=== PATIENT | female | born 1945 | race Caucasian/White ===

== ENCOUNTER → 2016-08-14 | Day surgery (SDC) | payer OTHER ==
[2016-08-02 08:37] VITALS: BMI 26.0
[~2016-08-14] VITALS: Ht 157.5 cm; Wt 65.0 kg
[~2016-08-14] MED LIST: ASPI-435 PO; FENO67CA2 PO; GLC5 PO; HYDR25TA4 PO; IBUP-1451 PO; ISOS-10 PO; LIDOCAINE HCL 2% 2 ML VIAL (20MG/ML) ONE; LORA0.5T12 PO; METF-384 PO; MIDAZOLAM HCL 1 MG/ML 2ML VIAL ONE; NTRSL3 UT; NXM/40 PO; ONDANSETRON INJ 2 MG/ML 2 ML VIAL ONE; POLY99.02 OP; PROPOFOL IV EMULSION 10 MG/ML 20 ML VIAL IV ONE; PSYL55.43 PO; REPA2TAB13 PO; SODIUM CHLORIDE 0.9% 500ML 500 ML IV ONE; TRAZ100T29 PO; ZCR40 PO
[2016-08-14 14:28] VITALS: Ht 157.5 cm; Wt 65.0 kg
[2016-08-14 14:29] VITALS: TEMP 36.9
--- NOTE | 2016-08-14 15:05 | Endo History and Physical ---
History & Physical Date of Service: Aug 14, 2016. Chief Complaint: DYSPHAGIA Referring Physician: DR SAUL History of Present Illness esophageal structure/dysphagia Past Medical History Diabetes, Anxiety, Reflux, High Cholesterol, Hypertension Past Surgical History Hx Cardiac Surgery: No Hx Internal Defibrillator: No Hx Pacemaker: No Hx Abdominal Surgery: Yes (D&C, TUBAL LIGATION) Hx of Implantable Prosthesis: No Hx Post-Op Nausea and Vomiting: No Hx Cancer Surgery: No Hx Thoracic Surgery: No Hx Orthopedic: No Hx Urinary Tract Surgery: No Family History IBD Social History Smoking Status: Former Smoker Hx Substance Use: No Hx Alcohol Use: No Allergies Coded Allergies: Aspirin (Unverified Allergy, Intermediate, PATIENT FEELS LIKE SHE IS BURNING/ WITH NAUSEA, 08/14/16) Dihydroxyaluminum Aminoacetate (Unverified Allergy, Intermediate, PATIENT FEELS LIKE SHE IS BURNING/ WITH NAUSEA, 08/14/16) Iron (Unverified Allergy, Intermediate, PATIENT FEELS LIKE DHE IS BURNING / NAUSEA, 08/14/16) Magnesium Carbonate (Unverified Allergy, Intermediate, PATIENT FEELS LIKE SHE IS BURNING/ WITH NAUSEA, 08/14/16) Uncoded Allergies: ANTIBIOTICS (Adverse Reaction, Unknown, VAGINAL YEAST INFECTION, 08/02/16) REQUESTS ANTIFUNGAL WHEN GIVEN ANTIBIOTICS Current Medications Reported Home Medications Medications Dose Route/Sig Max Daily Dose Days Date Category Dose Instructions Trazodone (Trazodone HCl) 100 Mg Tab 100 Mg PO HS 01/23/16 Reported Glipizide 5 Mg Tab 5 Mg PO HS 01/23/16 Reported Glipizide 5 Mg Tab 10 Mg PO QAM 01/23/16 Reported Artificial Tears Soln 1-2 Drops OP QID 06/26/15 Reported TO AFFECTED EYE PRN Metamucil Powder (Psyllium Hydrophilic Mucilloid) Powd 2 Tbs PO QAM 06/26/15 Reported Nitrostat (Nitroglycerin) 0.3 Mg Tab 0.3 Mg UT UD PRN 06/26/15 Reported Nexium (Esomeprazole Magnesium) 40 Mg Cap 40 Mg PO HS 06/26/15 Reported Lorazepam 0.5 Mg Tab 0.5 Mg PO TID 03/02/14 Reported Aspirin 81 (Aspirin) 81 Mg Tab 81 Mg PO QAM 03/02/14 Reported Isosorbide Mononitrate ER (Isosorbide Mononitrate) 60 Mg Tabcr 120 Mg PO QAM 03/02/14 Reported Simvastatin 40 Mg Tab 40 Mg PO QHS 03/02/14 Reported Hctz (Hydrochlorothiazide) 25 Mg Tab 25 Mg PO QAM 03/02/14 Reported Prandin (Repaglinide) 2 Mg Tab 2 Mg PO QAM 03/02/14 Reported Tricor (Fenofibrate) 67 Mg Cap 67 Mg PO HS 03/02/14 Reported Glucophage (Metformin Hcl) 1,000 Mg Tab 1,000 Mg PO HS 03/02/14 Reported Motrin (Ibuprofen) 800 Mg Tab 800 Mg PO DAILY PRN 03/02/14 Reported Vital Signs Weight (Kilograms): 65.00 Height (Feet): 5 Height (Inches): 2 Date Time Temp Pulse Resp B/P Pulse Ox O2 Delivery O2 Flow Rate FiO2 08/14/16 14:29 36.9 74 20 154/61 95 Room Air Physical Exam AAO x23 Nl s1s2 Lungs CTA Abd soft NT/ND + BS -- CCE Assessment and Plan EGD/dilation if needed
--- NOTE | 2016-08-14 15:31 | Anesthesiology Progress Note ---
Anesthesia Post Op Note Date & Time Aug 14, 2016 at 15:30 Vital Signs Pain Intensity: 0 Vital Signs Past 12 Hours Date Time Temp Pulse Resp B/P Pulse Ox O2 Delivery O2 Flow Rate FiO2 08/14/16 14:29 36.9 74 20 154/61 95 Room Air Notes Mental Status: alert / awake / arousable, participated in evaluation Pt Amnestic to Procedure: Yes Nausea / Vomiting: adequately controlled Pain: adequately controlled Airway Patency, RR, SpO2: stable & adequate BP & HR: stable & adequate Hydration State: stable & adequate Anesthetic Complications: no major complications apparent
--- NOTE | 2016-08-14 15:35 | Discharge Instructions ---
Endoscopy Patient Instructions Date / Procedure(s) Performed Aug 14, 2016. EGD Allergy Information Coded Allergies: Aspirin (Unverified Allergy, Intermediate, PATIENT FEELS LIKE SHE IS BURNING/ WITH NAUSEA, 08/14/16) Dihydroxyaluminum Aminoacetate (Unverified Allergy, Intermediate, PATIENT FEELS LIKE SHE IS BURNING/ WITH NAUSEA, 08/14/16) Iron (Unverified Allergy, Intermediate, PATIENT FEELS LIKE DHE IS BURNING / NAUSEA, 08/14/16) Magnesium Carbonate (Unverified Allergy, Intermediate, PATIENT FEELS LIKE SHE IS BURNING/ WITH NAUSEA, 08/14/16) Uncoded Allergies: ANTIBIOTICS (Adverse Reaction, Unknown, VAGINAL YEAST INFECTION, 08/02/16) REQUESTS ANTIFUNGAL WHEN GIVEN ANTIBIOTICS Discharge Date / Findings Aug 14, 2016. 1) SSBE; gastric polyps; small HH Medication Instructions Stopped Medication(s): IBUPROFEN GLUCOPHAGE Restart Stopped Medication(s): Reported Home Medications Medications Dose Route/Sig Max Daily Dose Days Date Category Dose Instructions Trazodone (Trazodone HCl) 100 Mg Tab 100 Mg PO HS 01/23/16 Reported Glipizide 5 Mg Tab 5 Mg PO HS 01/23/16 Reported Glipizide 5 Mg Tab 10 Mg PO QAM 01/23/16 Reported Artificial Tears Soln 1-2 Drops OP QID 06/26/15 Reported TO AFFECTED EYE PRN Metamucil Powder (Psyllium Hydrophilic Mucilloid) Powd 2 Tbs PO QAM 06/26/15 Reported Nitrostat (Nitroglycerin) 0.3 Mg Tab 0.3 Mg UT UD PRN 06/26/15 Reported Nexium (Esomeprazole Magnesium) 40 Mg Cap 40 Mg PO HS 06/26/15 Reported Lorazepam 0.5 Mg Tab 0.5 Mg PO TID 03/02/14 Reported Aspirin 81 (Aspirin) 81 Mg Tab 81 Mg PO QAM 03/02/14 Reported Isosorbide Mononitrate ER (Isosorbide Mononitrate) 60 Mg Tabcr 120 Mg PO QAM 03/02/14 Reported Simvastatin 40 Mg Tab 40 Mg PO QHS 03/02/14 Reported Hctz (Hydrochlorothiazide) 25 Mg Tab 25 Mg PO QAM 03/02/14 Reported Prandin (Repaglinide) 2 Mg Tab 2 Mg PO QAM 03/02/14 Reported Tricor (Fenofibrate) 67 Mg Cap 67 Mg PO HS 03/02/14 Reported Glucophage (Metformin Hcl) 1,000 Mg Tab 1,000 Mg PO HS 03/02/14 Reported Motrin (Ibuprofen) 800 Mg Tab 800 Mg PO DAILY PRN 03/02/14 Reported Reported Home Medications Medications Dose Route/Sig Max Daily Dose Days Date Category Dose Instructions Trazodone (Trazodone HCl) 100 Mg Tab 100 Mg PO HS 01/23/16 Reported Glipizide 5 Mg Tab 5 Mg PO HS 01/23/16 Reported Glipizide 5 Mg Tab 10 Mg PO QAM 01/23/16 Reported Artificial Tears Soln 1-2 Drops OP QID 06/26/15 Reported TO AFFECTED EYE PRN Metamucil Powder (Psyllium Hydrophilic Mucilloid) Powd 2 Tbs PO QAM 06/26/15 Reported Nitrostat (Nitroglycerin) 0.3 Mg Tab 0.3 Mg UT UD PRN 06/26/15 Reported Nexium (Esomeprazole Magnesium) 40 Mg Cap 40 Mg PO HS 06/26/15 Reported Lorazepam 0.5 Mg Tab 0.5 Mg PO TID 03/02/14 Reported Aspirin 81 (Aspirin) 81 Mg Tab 81 Mg PO QAM 03/02/14 Reported Isosorbide Mononitrate ER (Isosorbide Mononitrate) 60 Mg Tabcr 120 Mg PO QAM 03/02/14 Reported Simvastatin 40 Mg Tab 40 Mg PO QHS 03/02/14 Reported Hctz (Hydrochlorothiazide) 25 Mg Tab 25 Mg PO QAM 03/02/14 Reported Prandin (Repaglinide) 2 Mg Tab 2 Mg PO QAM 03/02/14 Reported Tricor (Fenofibrate) 67 Mg Cap 67 Mg PO HS 03/02/14 Reported Glucophage (Metformin Hcl) 1,000 Mg Tab 1,000 Mg PO HS 03/02/14 Reported Motrin (Ibuprofen) 800 Mg Tab 800 Mg PO DAILY PRN 03/02/14 Reported Provider Instructions Activity Restrictions - No exercising or heavy lifting for 24 hours. - Do not drink alcohol the day of the procedure. - Do not drive a car or operate machinery until the day after the procedure. - Do not make any important decisions or sign important papers in 24 hours after the procedure. Following Day: - Return to full activity which may include returning to work/school. Diet Start your diet with liquids and light foods (jello, soup, juice, toast). Then eat your usual diet if not nauseated. Treatment For Common After Affects For mild abdominal pain, bloating, or excessive gas: - Rest - Eat lightly - Lie on right side Follow-Up Information Follow-up with DR SAUL as scheduled Anesthesia Information What You Should Know You have had a procedure that required some medicine to reduce anxiety and discomfort. This treatment is called moderate sedation. After receiving the treatment, you may be sleepy, but you will be able to breathe on your own. The effects of the treatment may last for several hours. Follow these instructions along with Activity/Diet recommendations noted above: * Do NOT do anything where dizziness or clumsiness would be dangerous. * Rest quietly at home today, then you can be up and about tomorrow. * Have a responsible person stay with you the rest of today. * You may have had an I.V. today. If so, you may take the dressing off later today. Recommendations Call your doctor if: * Trouble breathing * Continuous vomiting for more than 24 hours * Temperature above 101 degrees * Severe abdominal pain or bloating * Pain not relieved by pain medicine ordered * There is increased drainage or redness from any incision * A large amount of rectal bleeding greater than 2-3 tablespoons. (If you had a polyp/s removed or have hemorrhoids, a small amount of blood - from the rectum is to be expected.) * You have any unanswered questions or concerns. IN THE EVENT OF A SERIOUS EMERGENCY, GO TO THE NEAREST EMERGENCY ROOM Your discharge instructions were prepared by provider Shane Coello. Patient Instructions Signature Page Sheba Jerry Patient (or Guardian) Signature/Date: I have read and understand the instructions given to me by my caregivers. Caregiver/RN/Doctor Signature/Date: The above-named patient and/or guardian has received patient instructions on this date. + Original Patient Signature Page (only) stays with chart. Please make copy for patient.
--- NOTE | 2016-08-14 15:40 | GI REPORT ---
Procedure Date: 08/14/2016 3:13 PM Procedure: Upper GI endoscopy Indications: Esophageal dysphagia, Gastro-esophageal reflux disease Medicines: Propofol per Anesthesia Complications: No immediate complications. Estimated blood loss: Minimal. Estimated Blood Loss: Estimated blood loss was minimal. Procedure: Pre-Anesthesia Assessment: - Prior to the procedure, a History and Physical was performed, and patient medications and allergies were reviewed. The patient's tolerance of previous anesthesia was also reviewed. The risks and benefits of the procedure and the sedation options and risks were discussed with the patient. All questions were answered, and informed consent was obtained. Prior Anticoagulants: The patient has taken no previous anticoagulant or antiplatelet agents. ASA Grade Assessment: II - A patient with mild systemic disease. After reviewing the risks and benefits, the patient was deemed in satisfactory condition to undergo the procedure. After obtaining informed consent, the endoscope was passed under direct vision. Throughout the procedure, the patient's blood pressure, pulse, and oxygen saturations were monitored continuously. The scope was introduced through the mouth, and advanced to the second part of duodenum. The upper GI endoscopy was accomplished without difficulty. The patient tolerated the procedure well. Findings: The upper third of the esophagus and middle third of the esophagus were normal. The esophagus and gastroesophageal junction were examined with white light. 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 These changes involved the mucosa at the upper extent of the gastric folds (37 cm from the incisors) extending to the Z-line (36 cm from the incisors). Hiatal narrowing was identified at 38 cm. The maximum longitudinal extent of these esophageal mucosal changes was 1 cm in length. Mucosa was biopsied with a cold forceps for histology. One specimen bottle was sent to pathology. Verification of patient identification for the specimen was done by the physician and technician support association using the patient's name and medical record number. Multiple small sessile polyps with no bleeding and no stigmata of recent bleeding were found in the gastric body. Biopsies were taken with a cold forceps for histology. Estimated blood loss was minimal. Verification of patient identification for the specimen was done by the physician and technician support association using the patient's name and medical record number. The examined duodenum was normal. Retained gastric contents are not identified on this exam. The cardia and gastric fundus were normal on retroflexion. The gastric body and gastric antrum were normal. Biopsies were taken with a cold forceps for histology. Estimated blood loss was minimal. Verification of patient identification for the specimen was done by the physician and technician support association using the patient's name and medical record number. The examined esophagus was normal. A guidewire was placed and the scope was withdrawn. Dilation was performed with a Savary dilator with no resistance at 54 Fr. Estimated blood loss: none. Impression: - Normal upper third of esophagus and middle third of esophagus. 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 Biopsied. - Multiple gastric polyps. Biopsied. - Normal examined duodenum. - Normal gastric body and antrum. Biopsied. - Normal esophagus. Dilated. Recommendation: - Discharge patient to home (ambulatory). - Patient has a contact number available for emergencies. The signs and symptoms of potential delayed complications were discussed with the patient. Return to normal activities tomorrow. Written discharge instructions were provided to the patient. - Resume regular diet. MD Shane Flores MD 08/14/2016 3:40:11 PM This report has been signed electronically. Note Initiated On: 08/14/2016 3:13 PM I attest to the content of the Intraoperative Record and orders documented therein, exceptions below
[2016-08-14 16:09] VITALS: BP 107/55; PULSE 61; O2SAT 97
== END | disposition home or self-care (01) ==
LOC: C.GI 13:54
PROVIDERS: ATTEND Internal Medicine Gastroenterology
DX: K22.2 Esophageal obstruction (principal); K22.70 Barrett's esophagus without dysplasia; K21.9 Gastro-esophageal reflux disease without esophagitis; K31.7 Polyp of stomach and duodenum; F41.9 Anxiety disorder, unspecified; E78.5 Hyperlipidemia, unspecified; E11.9 Type 2 diabetes mellitus without complications; I10 Essential (primary) hypertension; Z83.79 Family history of other diseases of the digestive system; Z88.5 Allergy status to narcotic agent; Z88.8 Allergy status to other drugs, medicaments and biological substances; Z98.51 Tubal ligation status; Z87.891 Personal history of nicotine dependence

== ENCOUNTER → 2016-09-10 | Outpatient (CLI) | payer OTHER ==
[~2016-09-10] MED LIST changes: -LIDOCAINE HCL 2% 2 ML VIAL (20MG/ML) ONE; -MIDAZOLAM HCL 1 MG/ML 2ML VIAL ONE; -ONDANSETRON INJ 2 MG/ML 2 ML VIAL ONE; -PROPOFOL IV EMULSION 10 MG/ML 20 ML VIAL IV ONE; +REPA2TAB12 PO; -REPA2TAB13 PO; -SODIUM CHLORIDE 0.9% 500ML 500 ML IV ONE
--- NOTE | 2016-09-10 08:57 | DIAGNOSTIC IMAGING REPORT ---
HEAD CT NONCONTRAST CT DOSE: 537.48 mGy.cm HISTORY: Bone lesion bone lesion TECHNIQUE: Multiaxial CT images of the head were performed without the use of intravenous contrast. Comparison: Multiple prior examinations including 2016, 2015, and 2013. Findings: The paranasal sinuses and mastoid air cells are clear. Sclerotic process left frontal bone is unchanged compared to multiple prior exams. This again is considered benign. Density characteristics of the cerebellar as well as cerebral hemispheres are unremarkable. No acute intracranial hemorrhage. Impression: 1. Negative unenhanced CT scan of the brain. 2. Stable sclerotic density left frontal bone unchanged compared to multiple prior studies and considered benign Electronically signed by: Justyn Khan M.D. 09/10/2016 8:54 AM Dictated Date/Time: 09/10/2016 8:52 AM
== END | disposition home or self-care (01) ==
LOC: C.CTS 08:37
PROVIDERS: ATTEND Psychiatry & Neurology Neurology
DX: M89.8X8 Other specified disorders of bone, other site (principal); R51 Headache; I10 Essential (primary) hypertension; E11.9 Type 2 diabetes mellitus without complications

== ENCOUNTER → 2017-12-16 | Outpatient (CLI) | payer OTHER ==
--- NOTE | 2017-12-16 16:19 | MAMMOGRAPHY REPORT ---
THIS REPORT HAS BEEN AMENDED. BILATERAL DIGITAL DIAGNOSTIC MAMMOGRAM TOMOSYNTHESIS WITH CAD AND TARGETED RIGHT ULTRASOUND: 8 CLINICAL HISTORY: 72-year-old woman presents with a small palpable lump in the far lateral right guy st, which she describes as the size of a match head. No skin erythema or thickening. No nipple discha rge. Also due for annual bilateral screening mammograms. TECHNIQUE: The study was acquired using full field digital technology and interpreted from soft copy. Breast tomosynthesis in addition to standard 2D mammography was performed. Current study was also ev aluated with a Computer Aided Detection (CAD) system. COMPARISON: Comparison is made to exam dated: 03/08/2017 mammogram. BREAST COMPOSITION: There are scattered areas of fibroglandular density in both breasts. FINDINGS: A triangular skin marker was placed on the palpable lump pointed out by the patient, which is seen in the superior, posterior right breast on the MLO view. There is no evidence of a suspiciou s mass, asymmetry, area of architectural distortion or new calcifications in the superior posterior r ight breast or elsewhere throughout the remainder of each breast. There are mild to moderate vascula r calcifications bilaterally. Overall, there has been no significant interval change comparing to pr ior mammograms. The patient pointed out the area of concern in the right breast 8:00 axis, 17 cm from the nipple, in the far lateral aspect near the midaxillary line. There is focal ovoid versus fusiform thickening of the dermis that is echogenic. This focal oval dermal thickening measures 5.8 x 2.0 x 5.4 mm. There is no evidence of fluid or an epidermal inclusion cyst. Dermatologic follow-up is therefore recomme nded. IMPRESSION: ACR BI-RADS CATEGORY 2: BENIGN, ULTRASOUND ACR BI-RADS CATEGORY 2: BENIGN 1. Stable bilateral mammograms, without mammographic evidence of malignancy. Recommend routine scre ening mammography in 1 year. 2. There is an ovoid focal thickening of the dermis in the 8:00 right breast, 17 cm from the nipple, near the midaxillary line, correlating with the palpable lump pointed out by the patient. There is no evidence of a fluid collection or epidermal inclusion cyst. Dermatologic follow-up is therefore r ecommended. These results and recommendations were discussed with the patient at the time of the exam. Some breast cancers are not detected with mammography. A negative mammographic report should not mena y biopsy if a clinically suggestive mass is present. Janice Howard M.D. ay/:12/16/2017 14:50:27 [employer] Clerk: Eleonora Damico, [facility]; Janice Howard, [facility] letter sent: Normal 05/27 OVERALL STUDY BIRADS: 2 Benign AMENDMENT: 12/22/2017 Janice Howard M.D. This is a correction to the bilateral digital diagnostic mammogram and targeted right breast ultra sound report. The comparison examination was actually from 03/01/2014, not 03/08/2017. This 2013 michelle mogram was performed at [facility]. Amended BI-RADS: ACR BI-RADS Category 2: Benign letter sent: Normal 05/27
== END | disposition home or self-care (01) ==
LOC: C.MAMM 10:38
PROVIDERS: ATTEND Nurse Practitioner Family
DX: N63.10 Unspecified lump in the right breast, unspecified quadrant (principal); Z12.31 Encounter for screening mammogram for malignant neoplasm of breast

== ENCOUNTER 2020-07-17 14:27 | Observation (INO) ==
--- NOTE | 2020-07-17 14:55 | Emergency Department Note ---
Impression & Plan Symptomatic anemia ED Provider Note NAME: SHANNON AGUILAR AGE: 75 SEX: F : 1945 ARRIVES VIA: Walk-In INFORMANT: Patient, ED PROVIDER(S): Jose Angel Correa MD Chief Complaint: Low hemoglobin, doctor referral HPI: Patient does present with concern for low hemoglobin after a CBC was completed and the patient did complete an iron infusion. Patient states she has had increasing shortness of breath fatigue and dizziness that is been ongoing for weeks. The patient denies any prior history of blood in the urine or stool. The patient denies any diarrhea or vomiting. The patient states that she has had colonoscopy and endoscopy and was not told of any significant findings. The patient is a non-smoker. The patient denies any chest pains. The patient did require transfusion many many years ago in the 60s secondary to miscarriage. The patient denies upper respiratory symptoms including loss of taste or smell or cough. Patient does take a baby aspirin but denies any other blood thinning medications. ROS: See HPI for pertinent positives and negatives. A total of 10 systems were reviewed and otherwise negative. Past medical history: See below Surgical history: See below Social history: See below Physical Exam: GENERAL: Wearing a mask. NAD, non-toxic. EYE EXAM: Normal conjunctiva. PERRL, no anisocoria and EOM's grossly intact w/o pain. NECK: Supple, no nuchal rigidity, no adenopathy, non-tender. No signs of meningismus. LUNGS: Clear to auscultation. Normal chest wall mechanics. HEART: NSR, no MRG. ABDOMEN: Abdomen soft, non-tender, normo-active bowel sounds, no masses, no rebound or guarding. BACK: No CVA TTP. SKIN: No rashes and no bruising. UPPER EXTREMITIES: Upper extremities are grossly normal. LOWER EXTREMITIES: Grossly normal, no edema. NEURO EXAM: A&O x3, cranial nerves II-XII grossly intact, normal speech, moves all 4 extremities on command w/o issue. Differential diagnoses: Infection, dehydration, metabolic abnormality, hypo/hyperglycemia, electrolyte disturbance, anemia, hypoxia, cardiac sources, intracerebral event, toxicologic, neurologic, as well as other pathologies. Course: Patient was seen and evaluated the bedside. Full history physical exam was performed. EKG: Indication: Weakness Normal sinus rhythm, rate of 78, normal RI and QRS, normal axis. Imaging Studies: Radiology results as stated below per my review in the radiologist's interpretation: XR chest 1V portable CLINICAL HISTORY: weakness COMPARISON STUDY: 01/23/2016 FINDINGS: The cardiac and mediastinal contours remain stable. The patient appears hyperinflated. There is no failure. There is no focal pulmonary consolidation.[There are no significant pleural effusions. IMPRESSION: Mild hyperinflation. No acute findings. ACT 112: Negative or not required by law. Electronically signed by: Kojo Slade M.D. 07/17/2020 3:49 PM Dictated: 07/17/201548 Transcribed: 07/17/201548 Cardiac monitoring: An order was placed for continuous cardiac monitoring. The monitor shows a rate of 81 with sinus rhythm. MDM: Patient was seen due to concern for anemia. Patient did have blood work completed which showed the patient has a normal white count mild thrombocytosis and associated anemia with hemoglobin of 6.3. Earlier today it was less than 6. Mild hypokalemia noted. Glucose is elevated 223. Covid negative. The patient was consented for transfusion of blood products and the patient was ordered 2 units to be given. I did speak with the on-call hospitalist Dr. Jimenez and the patient was admitted to the medicine service. Critical Care: I have personally spent 45 minutes of critical care time in direct management of this patient. This includes bedside care, interpretation of diagnostic studies, and testing, discussion with consultants, patient, and family members, and other require inpatient management activities. This 45 minutes is in excess of all separately billable procedures. 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 History of esophageal dilatation History of rheumatic fever as a child x3 in childhood Hyperlipidemia Hypertension Lesion of temporal lobe Migraine Surgical History History of bilateral cataract extraction History of bilateral tubal ligation History of biopsy of temporal artery benign History of colonoscopy with polypectomy History of dilatation and curettage History of esophagogastroduodenoscopy (EGD) History of tooth extraction all teeth Status post epidural steroid injection Family History Daughter Family history of reaction to anesthesia "has issues being put to sleep"--unable to provide further information Brother Family history of diabetes mellitus Brother Family history of diabetes mellitus Mother Family history of diabetes mellitus Aunt Family history of diabetes mellitus Grandmother (Paternal) Family history of diabetes mellitus Social History Smoking Status: Former smoker Second Hand Exposure: Yes (father smoked/ smoked/kids smoke); Hx Alcohol Use: No Hx Substance Use: No Preferred Language: Mongolian Communication Ability: Effective 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 Required: No Beliefs That Will Affect Care: None Current Living Situation: Alone Feels Safe at Home: Yes Assistive Devices: None Allergies Allergies Allergy/AdvReac Type Severity Reaction Status Date / Time iron Allergy Intermediate PATIENT Verified 05/05/20 12:29 FEELS LIKE DHE IS BURNING/ NAUSEA magnesium carbonate Allergy Intermediate PATIENT Verified 05/05/20 12:29 FEELS LIKE SHE IS BURNING/ WITH NAUSEA Dihydroxyaluminum Allergy Intermediate PATIENT Uncoded 05/05/20 12:29 Aminoacetate FEELS LIKE SHE IS BURNING/ WITH NAUSEA ANTIBIOTICS AdvReac Mild VAGINAL Uncoded 05/05/20 12:29 YEAST INFECTION Home Meds Home Medications Medication Instructions Recorded Confirmed Artificial Tears (PF) 1 drp OPHTHALMIC (EYE) BID 04/27/20 07/17/20 Metamucil 2 tbsp PO QAM 04/27/20 07/17/20 fenofibrate micronized 67 mg PO PM 04/27/20 07/17/20 glipizide 5 mg PO QPM 04/27/20 07/17/20 glipizide 10 mg PO QAM 04/27/20 07/17/20 hydrochlorothiazide 12.5 mg PO QAM 04/27/20 07/17/20 ibuprofen 800 mg PO DAILY PRN 04/27/20 07/17/20 isosorbide mononitrate 120 mg PO QAM 04/27/20 07/17/20 lorazepam 0.5 mg PO TID 04/27/20 07/17/20 metformin 1,000 mg PO BID 04/27/20 07/17/20 nitroglycerin 0.4 mg SUBLINGUAL UD PRN 04/27/20 07/17/20 pantoprazole 20 mg PO QPM 04/27/20 07/17/20 repaglinide 2 mg PO QAM 04/27/20 07/17/20 simvastatin 40 mg PO PM 04/27/20 07/17/20 trazodone 100 mg PO HS 04/27/20 07/17/20 aspirin [Aspir-Low] 81 mg PO DAILY 07/17/20 07/17/20 Results & Data (ED) Vital Signs Vital Signs - 24 hr 07/17/20 14:31 07/17/20 15:30 07/17/20 16:00 Temperature 36.3 C L Temperature Source Temporal Artery Scan Pulse Rate 90 82 78 Pulse Rhythm Respiratory Rate 20 27 H 24 Blood Pressure 147/70 H 130/64 120/60 Blood Pressure Mean 95 86 80 Pulse Oximetry 97 97 96 Oxygen Delivery Method Room Air Sepsis Recent Fever Within 48 Hours No Sepsis New/Unexplained Change in Mental Status No Sepsis Action Taken by Nursing No Action Required 07/17/20 16:30 07/17/20 17:15 07/17/20 17:31 Temperature 37.6 C H 37.1 C Temperature Source Oral Oral Pulse Rate 77 78 77 Pulse Rhythm Regular Respiratory Rate 22 18 18 Blood Pressure 127/59 L 141/63 H 132/79 Blood Pressure Mean 81 89 96 Pulse Oximetry 95 96 96 Oxygen Delivery Method Sepsis Recent Fever Within 48 Hours Sepsis New/Unexplained Change in Mental Status Sepsis Action Taken by Nursing 07/17/20 17:46 07/17/20 18:16 Temperature 37.0 C 37.2 C Temperature Source Oral Oral Pulse Rate 81 83 Pulse Rhythm Respiratory Rate 17 18 Blood Pressure 134/65 157/75 H Blood Pressure Mean 88 102 Pulse Oximetry 97 98 Oxygen Delivery Method Sepsis Recent Fever Within 48 Hours Sepsis New/Unexplained Change in Mental Status Sepsis Action Taken by [facility] Medications Current Medication List: was personally reviewed by me Laboratory Data Attestation: I reviewed the patient's lab results. Result diagrams: 07/18/20 05:33 07/18/20 05:33 Lab Results 07/17/20 07/17/20 07/17/20 Range/Units 15:20 15:20 15:20 WBC 8.01 (4.8-10.8) K/uL RBC 3.50 L (4.2-5.4) M/uL Hgb 6.3 L* (12.0-16.0) g/dL Hct 21.9 L (37-47) % MCV 62.6 L (80-100) fL MCH 18.0 L (25-34) pg MCHC 28.8 L (32-36) g/dL RDW Std Deviation 39.6 (36.4-46.3) fL RDW Coeff of Carol 17.2 H (11.5-14.5) % Plt Count 418 H (130-400) K/uL MPV 8.7 (7.4-10.4) fL Immature Gran % (Auto) 0.1 % Neut % (Auto) 69.4 % Lymph % (Auto) 23.1 % [place] % (Auto) 6.0 % Eos % (Auto) 1.0 % Baso % (Auto) 0.4 % Neut # (Auto) 5.56 (1.4-6.5) K/uL Lymph # (Auto) 1.85 (1.2-3.4) K/uL [place] # (Auto) 0.48 (0.11-0.59) K/uL Eos # (Auto) 0.08 (0-0.5) K/uL Baso # (Auto) 0.03 (0-0.2) K/uL Immature Gran # (Auto) 0.01 (0.00-0.02) K/uL Polychromasia 1+ Basophilic Stippling 1+ PT 10.7 (9.0-12.0) Seconds INR 1.1 (0.9-1.1) APTT 21.3 (21.0-31.0) Seconds PTT Ratio 0.8 Sodium 138 (136-145) mmol/L Potassium 3.4 L (3.5-5.1) mmol/L Chloride 103 (98-107) mmol/L Carbon Dioxide 26 (21-32) mmol/L Anion Gap 9.0 (3-11) BUN 9 (7-18) mg/dl Creatinine 1.13 (0.6-1.2) mg/dl Est Cr Clr Drug Dosing 36.4 ml/min Est GFR ( Amer) 54.7 Est GFR (Non-Af Amer) 47.2 BUN/Creatinine Ratio 7.5 L (10-20) Glucose 223 H (70-99) mg/dl Calcium 9.0 (8.5-10.1) mg/dl Total Bilirubin 0.2 (0.2-1) mg/dl AST 8 L (15-37) U/L ALT 13 (12-78) U/L Alkaline Phosphatase 78 (45-117) U/L Total Protein 7.7 (6.4-8.2) gm/dl Albumin 3.4 (3.4-5.0) gm/dl Globulin 4.3 H (2.5-4.0) gm/dl Albumin/Globulin Ratio 0.8 L (0.9-2) COVID-19 Eval Order SARS-CoV-2, RNA, NAAT (NEGATIVE) Blood Type Blood Type Recheck Antibody Screen Crossmatch 07/17/20 07/17/20 07/17/20 Range/Units 15:43 15:43 17:50 WBC (4.8-10.8) K/uL RBC (4.2-5.4) M/uL Hgb (12.0-16.0) g/dL Hct (37-47) % MCV (80-100) fL MCH (25-34) pg MCHC (32-36) g/dL RDW Std Deviation (36.4-46.3) fL RDW Coeff of Carol (11.5-14.5) % Plt Count (130-400) K/uL MPV (7.4-10.4) fL Immature Gran % (Auto) % Neut % (Auto) % Lymph % (Auto) % [place] % (Auto) % Eos % (Auto) % Baso % (Auto) % Neut # (Auto) (1.4-6.5) K/uL Lymph # (Auto) (1.2-3.4) K/uL [place] # (Auto) (0.11-0.59) K/uL Eos # (Auto) (0-0.5) K/uL Baso # (Auto) (0-0.2) K/uL Immature Gran # (Auto) (0.00-0.02) K/uL Polychromasia Basophilic Stippling PT (9.0-12.0) Seconds INR (0.9-1.1) APTT (21.0-31.0) Seconds PTT Ratio Sodium (136-145) mmol/L Potassium (3.5-5.1) mmol/L Chloride (98-107) mmol/L Carbon Dioxide (21-32) mmol/L Anion Gap (3-11) BUN (7-18) mg/dl Creatinine (0.6-1.2) mg/dl Est Cr Clr Drug Dosing ml/min Est GFR ( Amer) Est GFR (Non-Af Amer) BUN/Creatinine Ratio (10-20) Glucose (70-99) mg/dl Calcium (8.5-10.1) mg/dl Total Bilirubin (0.2-1) mg/dl AST (15-37) U/L ALT (12-78) U/L Alkaline Phosphatase (45-117) U/L Total Protein (6.4-8.2) gm/dl Albumin (3.4-5.0) gm/dl Globulin (2.5-4.0) gm/dl Albumin/Globulin Ratio (0.9-2) COVID-19 Eval [facility] SARS-CoV-2, RNA, NAAT (NEGATIVE) Blood Type O Positive Blood Type Recheck O Positive Antibody Screen NEGATIVE Crossmatch See Detail 07/17/20 Range/Units 17:50 WBC (4.8-10.8) K/uL RBC (4.2-5.4) M/uL Hgb (12.0-16.0) g/dL Hct (37-47) % MCV (80-100) fL MCH (25-34) pg MCHC (32-36) g/dL RDW Std Deviation (36.4-46.3) fL RDW Coeff of Carol (11.5-14.5) % Plt Count (130-400) K/uL MPV (7.4-10.4) fL Immature Gran % (Auto) % Neut % (Auto) % Lymph % (Auto) % [place] % (Auto) % Eos % (Auto) % Baso % (Auto) % Neut # (Auto) (1.4-6.5) K/uL Lymph # (Auto) (1.2-3.4) K/uL [place] # (Auto) (0.11-0.59) K/uL Eos # (Auto) (0-0.5) K/uL Baso # (Auto) (0-0.2) K/uL Immature Gran # (Auto) (0.00-0.02) K/uL Polychromasia Basophilic Stippling PT (9.0-12.0) Seconds INR (0.9-1.1) APTT (21.0-31.0) Seconds PTT Ratio Sodium (136-145) mmol/L Potassium (3.5-5.1) mmol/L Chloride (98-107) mmol/L Carbon Dioxide (21-32) mmol/L Anion Gap (3-11) BUN (7-18) mg/dl Creatinine (0.6-1.2) mg/dl Est Cr Clr Drug Dosing ml/min Est GFR ( Amer) Est GFR (Non-Af Amer) BUN/Creatinine Ratio (10-20) Glucose (70-99) mg/dl Calcium (8.5-10.1) mg/dl Total Bilirubin (0.2-1) mg/dl AST (15-37) U/L ALT (12-78) U/L Alkaline Phosphatase (45-117) U/L Total Protein (6.4-8.2) gm/dl Albumin (3.4-5.0) gm/dl Globulin (2.5-4.0) gm/dl Albumin/Globulin Ratio (0.9-2) COVID-19 Eval Order SARS-CoV-2, RNA, NAAT NEGATIVE (NEGATIVE) Blood Type Blood Type Recheck Antibody Screen Crossmatch Administered Medications Fenofibrate (Fenofibrate Nanocrystallized 48 Mg Tablet) 48 mg PO PM [facility]; Protocol Stop: 08/16/20 20:59 Last Admin: 07/17/20 21:39 Dose: 48 mg Documented by: [id number] Hydrochlorothiazide (Hydrochlorothiazide 25 Mg Tab) [facility] [place] [facility] [place]: 08/17/20 08:59 Last Admin: 07/18/20 09:35 Dose: 12.5 mg Documented by: [id number] Insulin Aspart (Insulin Aspart 100 Units/Ml 3 Ml Pen) 0 units SC [facility] Stop: 08/16/20 20:59 Last Admin: 07/18/20 09:35 Dose: Not Given Documented by: [id number] Cosigned by: [id number] Admin: 07/17/20 21:24 Dose: Not Given Documented by: [id number] Isosorbide Mononitrate (Isosorbide [place] Extended Rel 60 Mg Tabcr) [facility] [place] [place]: 08/17/20 08:59 Last Admin: 07/18/20 09:36 Dose: 120 mg Documented by: [id number] Lorazepam (Lorazepam 0.5 Mg Tab) 0.5 mg PO TID RODRIGUEZ Stop: 08/16/20 20:59 Last Admin: 07/18/20 09:41 Dose: 0.5 mg Documented by: [id number] Admin: 07/17/20 21:39 Dose: 0.5 mg Documented by: [id number] Magnesium Oxide (Magnesium Oxide 400 Mg Tab) 400 mg PO QAM [facility] Stop: 08/17/20 08:59 Last Admin: 07/18/20 09:41 Dose: 400 mg Documented by: [id number] Pantoprazole Sodium (Pantoprazole 40 Mg Tab) 40 mg PO QPM [facility]; Protocol Stop: 08/16/20 20:59 Last Admin: 07/17/20 21:40 Dose: 40 mg Documented by: [id number] Simvastatin (Simvastatin 40 Mg Tab) 40 mg PO PM [facility] Stop: 08/16/20 20:59 Last Admin: 07/17/20 21:40 Dose: 40 mg Documented by: [id number] Trazodone HCl (Trazodone Hcl 100 Mg Tab) 100 mg PO HS [facility] Stop: 08/16/20 20:59 Last Admin: 07/17/20 21:40 Dose: 100 mg Documented by: [id number] Discontinued Medications Cyanocobalamin (Cyanocobalamin 1000 Mcg/Ml Vial) 1,000 mcg IM ONE ONE Stop: 07/18/20 09:01 Last Admin: 07/18/20 09:41 Dose: 1,000 mcg Documented by: [id number] Potassium Chloride (Potassium Chloride Crtab 20 Meq Tabcr) 40 meq PO ONE ONE Stop: 07/18/20 08:01 Last Admin: 07/18/20 09:40 Dose: 40 meq Documented by: [id number] Discharge Plan Visit Data Chief Complaint: Abnormal Labs/Diagnostic Testing Stated Complaint: SENT BY FOR BLOOD TRANSFUSION ED Provider: Jose Angel Correa Discharge Problem: Symptomatic anemia Patient Disposition: Admitted As Inpatient Discharge Instructions Interventions: ED Discharge Assessment Last Done: 07/17/20 19:43
[2020-07-17] MEDS ORDERED: SODIUM CHLORIDE 0.9% 250 ML IV PRN ×2 (15:08→20:46)
[2020-07-17 15:33] LABS: Hematocrit (blood only) 21.9 % (37-47); Hemoglobin 6.3 g/dL (12.0-16.0); Mean Corpuscular Hgb Conc 28.8 g/dL (32-36); Mean Corpuscular Volume 62.6 fL (80-100); Mean Platelet Volume 8.7 fL (7.4-10.4); Platelet Count 418 K/uL (130-400); RDW Coefficient of Variation 17.2 % (11.5-14.5); RDW Standard Deviation 39.6 fL (36.4-46.3); White Blood Count 8.01 K/uL (4.8-10.8)
[2020-07-17 15:42] LABS: INR 1.1 (0.9-1.1); Partial Thromboplastin Ratio 0.8; Partial Thromboplastin Time 21.3 Seconds (21.0-31.0); Prothrombin Time 10.7 Seconds (9.0-12.0)
--- NOTE | 2020-07-17 15:51 | XRay Report ---
XR chest 1V portable CLINICAL HISTORY: weakness COMPARISON STUDY: 01/23/2016 FINDINGS: The cardiac and mediastinal contours remain stable. The patient appears hyperinflated. Ther e is no failure. There is no focal pulmonary consolidation.[There are no significant pleural effusion s. IMPRESSION: Mild hyperinflation. No acute findings. ACT 112: Negative or not required by law. Electronically signed by: Kojo Slade M.D. 07/17/2020 3:49 PM
[2020-07-17 15:53] LABS: Basophilic Stippling 1+; Basophils # (auto) 0.03 K/uL (0-0.2); Basophils % (auto) 0.4 %; Eosinophils # (auto) 0.08 K/uL (0-0.5); Immature Granulocytes # (auto) 0.01 K/uL (0.00-0.02); Immature Granulocytes % (auto) 0.1 %; Lymphocytes # (auto) 1.85 K/uL (1.2-3.4); Lymphocytes % (auto) 23.1 %; Monocytes # (auto) 0.48 K/uL (0.11-0.59); Neutrophils # (auto) 5.56 K/uL (1.4-6.5); Neutrophils % (auto) 69.4 %; Polychromasia 1+
[2020-07-17 15:56] LABS: Albumin Globulin Ratio 0.8 (0.9-2); Albumin Level 3.4 gm/dl (3.4-5.0); BUN Creatinine Ratio 7.5 (10-20); Bilirubin,Total 0.2 mg/dl (0.2-1); Creatinine Clr Calc Pharmacy 36.4 ml/min; Est GFR (African American) 54.7; Est GFR (Non-African American) 47.2; Globulin 4.3 gm/dl (2.5-4.0); Potassium 3.4 mmol/L (3.5-5.1); Total Protein 7.7 gm/dl (6.4-8.2)
--- NOTE | 2020-07-17 16:35 | Electrocardiogram Report ---
Test Reason : Blood Pressure : / mmHG Vent. Rate : 078 BPM Atrial Rate : 078 BPM P-R Int : 124 ms QRS Dur : 074 ms QT Int : 456 ms P-R-T Axes : 068 046 085 degrees QTc Int : 519 ms Poor data quality, interpretation may be adversely affected Normal sinus rhythm Nonspecific T wave abnormality Abnormal ECG When compared with ECG of 24-JAN-2016 06:15, Nonspecific T wave abnormality now evident in Inferior leads Nonspecific T wave abnormality now evident in Anterior leads QT has lengthened Confirmed by Elmer Rueda ([id number]) on 07/17/2020 4:34:40 PM Referred By: REFERRED SELF Confirmed By:Jak Rueda
--- NOTE | 2020-07-17 18:28 | History & Physical Report ---
Date of Service July 17, 2020 Assessment & Plan (1) Symptomatic anemia: Unclear etiology. Negative EGD/colo in 04/[address] Hansen. Not able to review his records, so unclear if planned further work-up (eg capsule endoscopy) or not. Patient has not returned to see him and was not sure if any further work-up is planned. Denies any indication of active/acute bleeding such as melena, hematochezia, or hematemesis. Symptoms have been ongoing & steadily worsening for months. - Ordered 2 units of PRBCs in the ED - Given likely chronic nature, will defer GI consult at this time. - Repeat hgb in the AM. Again, given chronic nature, do not think acute re-check is needed. (2) Hypertension: BP today is 160/75. - Continue home meds: HCTZ, Imdur (3) Diabetes mellitus, type 2: No A1c in the chart. - Hold home oral meds. - Sliding scale insulin (4) History of angina: Reports chest pain that has ongoing for "years" and is not closely linked with exertion. None on interview today. EKG shows no signs of acute ischemia. - Stress test planned for 07/2020 - Hold ASA for anemia, though again, do not feel this is acute GI bleed. Risk:benefit can be discussed with the patient. (5) Anxiety: Mildly anxious affect on exam today, but within normal limits. - Continue home lorazepam & trazodone at night. (6) DVT prophylaxis: SCDs - Low DVT risk per admission calculator. DNR/DNI - Discussed with the patient who reports granddaughter is POA and knows that she does not want to be connect to life support. History of Present Illness Primary Care Provider: SANDHYA Welsh 75yo F w/ hx of HTN, DM who presents with anemia. The patient has not been feeling well since about 01/2020 when she noted increasing fatigue and dyspnea on exertion. She followed with her PCP who ordered some tests. In 04/2020, she had an EGD and colonoscopy with Dr. Glenn Hansen which did not reveal any source of GI bleeding. The patient notes that she has had chest pain for "years" for wh ich she is planned to have a stress test in 07/2020. She is also supposed to see a phy therapist, but will probably follow with her daughter's phy therapist. She reports that she saw Dr. Amato recently [facility]. She had labs drawn which showed a hemoglobin of 5.9, and she was sent to the ED by her PCP. She notes some subjective "flutter" of her heart over the last 3 weeks, but no objective heart racing. She denies any night sweats, nausea or vomiting, diarrhea, melena, hematochezia, hematemesis, or other signs of bleeding. Allergies Allergy/AdvReac Type Severity Reaction Status Date / Time iron Allergy Intermediate PATIENT Verified 05/05/20 12:29 FEELS LIKE DHE IS BURNING/ NAUSEA magnesium carbonate Allergy Intermediate PATIENT Verified 05/05/20 12:29 FEELS LIKE SHE IS BURNING/ WITH NAUSEA Dihydroxyaluminum Allergy Intermediate PATIENT Uncoded 05/05/20 12:29 Aminoacetate FEELS LIKE SHE IS BURNING/ WITH NAUSEA ANTIBIOTICS AdvReac Mild VAGINAL Uncoded 05/05/20 12:29 YEAST INFECTION Home Medications Medication Instructions Recorded Confirmed Type Artificial Tears (PF) 1 drp OPHTHALMIC (EYE) BID 04/27/20 07/17/20 History Metamucil 2 tbsp PO QAM 04/27/20 07/17/20 History fenofibrate micronized 67 mg PO PM 04/27/20 07/17/20 History glipizide 5 mg PO QPM 04/27/20 07/17/20 History glipizide 10 mg PO QAM 04/27/20 07/17/20 History hydrochlorothiazide 12.5 mg PO QAM 04/27/20 07/17/20 History ibuprofen 800 mg PO DAILY PRN 04/27/20 07/17/20 History isosorbide mononitrate 120 mg PO QAM 04/27/20 07/17/20 History lorazepam 0.5 mg PO TID 04/27/20 07/17/20 History metformin 1,000 mg PO BID 04/27/20 07/17/20 History nitroglycerin 0.4 mg SUBLINGUAL UD PRN 04/27/20 07/17/20 History pantoprazole 20 mg PO QPM 04/27/20 07/17/20 History repaglinide 2 mg PO QAM 04/27/20 07/17/20 History simvastatin 40 mg PO PM 04/27/20 07/17/20 History trazodone 100 mg PO HS 04/27/20 07/17/20 History aspirin [Aspir-Low] 81 mg PO DAILY 07/17/20 07/17/20 History Past Med/Surg History Medical History Anemia reason for colonoscopy/EGD Anxiety Diabetes mellitus, type 2 GERD (gastroesophageal reflux disease) History of angina 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 History of esophageal dilatation History of rheumatic fever as a child x3 in childhood Hyperlipidemia Hypertension Lesion of temporal lobe Migraine Surgical History History of bilateral cataract extraction History of bilateral tubal ligation History of biopsy of temporal artery benign History of colonoscopy with polypectomy History of dilatation and curettage History of esophagogastroduodenoscopy (EGD) History of tooth extraction all teeth Status post epidural steroid injection Family History Daughter Family history of reaction to anesthesia "has issues being put to sleep"--unable to provide further information Brother Family history of diabetes mellitus Brother Family history of diabetes mellitus Mother Family history of diabetes mellitus Aunt Family history of diabetes mellitus Grandmother (Paternal) Family history of diabetes mellitus Social History Smoking Status: Former smoker Second Hand Exposure: Yes (father smoked/ smoked/kids smoke); Hx Alcohol Use: No Hx Substance Use: No Preferred Language: Uzbek Communication Ability: Effective 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: No Beliefs That Will Affect Care: None Current Living Situation: Alone Feels Safe at Home: Yes Assistive Devices: Denture - Upper, Denture - Lower and Glasses Review of Systems Review of Systems: All systems reviewed & are unremarkable except as noted in HPI & below Physical Exam Constitutional: WD/WN, vitals as above Eyes: EOM intact bilaterally; no conjunctival abnormality ENMT: external ear and nose normal, oropharynx normal Neck: trachea midline, no thyromegaly normal visual inspection Respiratory: normal respiratory effort, lungs clear to auscultation no respiratory distress Cardiovascular: RRR, no murmur, no edema Gastrointestinal (Abdomen): Inspection/Auscultation: abdomen normal to inspection; abdomen not distended Musculoskeletal: no cyanosis or clubbing, extremities motor strength 5/5 Skin: no rashes, warm and dry Neurologic: moves all extremities and awake Psychiatric: Orientation: alert, oriented to person and cooperative Results & Data Results & Data ([facility]) Vital Signs (Past 12 Hours) Vital Signs Temp Pulse Resp BP Pulse Ox 07/17/20 18:16 37.2 C 83 18 157/75 H 98 07/17/20 17:46 37.0 C 81 17 134/65 97 07/17/20 17:31 37.1 C 77 18 132/79 96 07/17/20 17:15 37.6 C H 78 18 141/63 H 96 07/17/20 16:30 77 22 127/59 L 95 07/17/20 16:00 78 24 120/60 96 07/17/20 15:30 82 27 H 130/64 97 07/17/20 14:31 36.3 C L 90 20 147/70 H 97 Code Status & VTE Plan VTE Prophylaxis Plan VTE Prophylaxis will be ordered: Yes PG Care Time/CCT Total # of Minutes Spent Total Time Spent with Patient: Total time spent is greater than 50% in coordination of care (as documented) at patient's floor/unit and/or counseling patient: Coding Level of Care Code 63749 Initial Inpt Care Lvl 3 Diagnoses Symptomatic anemia D64.9 Hypertension I10 Diabetes mellitus, type 2 E11.9 History of angina Z86.79 Anxiety F41.9 DVT prophylaxis Z29.9
[2020-07-17] MEDS ORDERED: ACETAMINOPHEN 325 MG TAB PO PRN (20:06)
[2020-07-17] MEDS ORDERED: DEXTROSE 50% 50 ML SYRINGE IV PRN (20:06)
[2020-07-17] MEDS ORDERED: GLUCAGON FOR INJ 1 MG VIAL SQ PRN (20:06)
[2020-07-17] MEDS ORDERED: GLUCOSE 40% GEL 15 GM TUBE PO PRN (20:06)
[2020-07-17] MEDS ORDERED: CARBOHYDRATES FOR HYPOGLYCEMIA PO PRN (20:06)
[2020-07-17] MEDS ORDERED: GLUCOSE 10 TABS/TUBE PO PRN (20:06)
[2020-07-17] MEDS ORDERED: ONDANSETRON INJ 2 MG/ML 2 ML VIAL IV PRN (20:06)
[2020-07-17] MEDS ORDERED: FENOFIBRATE NANOCRYSTALLIZED 48 MG TABLET PO SCH (21:00)
[2020-07-17] MEDS ORDERED: PANTOprazole 40 MG TAB PO SCH (21:00)
[2020-07-17] MEDS ORDERED: traZODone HCL 100 MG TAB PO SCH (21:00)
[2020-07-17] MEDS ORDERED: SIMVASTATIN 40 MG TAB PO SCH (21:00)
[2020-07-17] MEDS: INSULIN ASPART 100 UNITS/ML 3 ML PEN SC SCH (21:24)
[2020-07-17] MEDS: LORazepam 0.5 MG TAB PO SCH (21:39)
[2020-07-18 06:26] LABS: Hematocrit (blood only) 29.4 % (37-47); Hemoglobin 9.2 g/dL (12.0-16.0); Mean Corpuscular Hemoglobin 21.5 pg (25-34); Mean Corpuscular Hgb Conc 31.3 g/dL (32-36); Mean Corpuscular Volume 68.7 fL (80-100); Mean Platelet Volume 9.1 fL (7.4-10.4); Platelet Count 361 K/uL (130-400); RDW Coefficient of Variation 21.9 % (11.5-14.5); Red Blood Count 4.28 M/uL (4.2-5.4)
[2020-07-18 06:39] LABS: BUN Creatinine Ratio 6.2 (10-20); Calcium 8.6 mg/dl (8.5-10.1); Creatinine Clr Calc Pharmacy 40.7 ml/min; Est GFR (African American) 69.2; Est GFR (Non-African American) 59.7; Magnesium 1.7 mg/dl (1.8-2.4); Potassium 3.2 mmol/L (3.5-5.1)
[2020-07-18] MEDS ORDERED: CYANOCOBALAMIN 30 MCG in SYRINGE 0.97 ML IM SCH (07:45)
[2020-07-18] MEDS ORDERED: POTASSIUM CHLORIDE CRTAB 20 MEQ TABCR PO ONE (08:00)
[2020-07-18 08:16] LABS: Estimated Average Glucose 203 mg/dl; Hemoglobin A1C 8.7 % (4.5-5.6)
[2020-07-18] MEDS ORDERED: MAGNESIUM OXIDE 400 MG TAB PO SCH (09:00)
[2020-07-18] MEDS ORDERED: CYANOCOBALAMIN 1000 MCG/ML VIAL IM ONE (09:00)
[2020-07-18] MEDS ORDERED: ISOSORBIDE MONO EXTENDED REL 60 MG TABCR PO SCH (09:00)
[2020-07-18] MEDS ORDERED: hydroCHLOROthiazide 25 MG TAB PO SCH (09:00)
[2020-07-18] MEDS: INSULIN ASPART 100 UNITS/ML 3 ML PEN SC SCH ×2 (09:35→12:42)
[2020-07-18] MEDS: LORazepam 0.5 MG TAB PO SCH ×2 (09:41→14:19)
--- NOTE | 2020-07-18 12:57 | Discharge Summary ---
Date of Service July 18, 2020 Admission HPI Per Admitting Provider 75yo F w/ hx of HTN, DM who presents with anemia. The patient has not been feeling well since about 01/2020 when she noted increasing fatigue and dyspnea on exertion. She followed with her PCP who ordered some tests. In 04/2020, she had an EGD and colonoscopy with Dr. Glenn Hansen which did not reveal any source of GI bleeding. The patient notes that she has had chest pain for "years" for which she is planned to have a stress test in 07/2020. She is also supposed to see a branch office manager, but will probably follow with her daughter's branch office manager. She reports that she saw Dr. Amato recently and [facility]. She had labs drawn which showed a hemoglobin of 5.9, and she was sent to the ED by her PCP. She notes some subjective "flutter" of her heart over the last 3 weeks, but no objective heart racing. She denies any night sweats, nausea or vomiting, diarrhea, melena, hematochezia, hematemesis, or other signs of bleeding. Admission Exam Per Admitting Provider Constitutional: WD/WN, vitals as above Eyes: EOM intact bilaterally; no conjunctival abnormality ENMT: external ear and nose normal, oropharynx normal Neck: trachea midline, no thyromegaly normal visual inspection Respiratory: normal respiratory effort, lungs clear to auscultation no respiratory distress Cardiovascular: RRR, no murmur, no edema Gastrointestinal (Abdomen): Inspection/Auscultation: abdomen normal to inspection; abdomen not distended Musculoskeletal: no cyanosis or clubbing, extremities motor strength 5/5 Skin: no rashes, warm and dry Neurologic: moves all extremities and awake Psychiatric: Orientation: alert, oriented to person and cooperative Principal Diagnosis Anemia Discharge Exam Constitutional WD/WN, vitals as above cooperative; no acute distress Eyes + anicteric sclerae ENMT external ear and nose normal, oropharynx normal Neck normal visual inspection and trachea midline Respiratory normal respiratory effort, lungs clear to auscultation Cardiovascular RRR, no murmur, no edema Heart Sounds: normal S1 and normal S2 Gastrointestinal (Abdomen) normal bowel sounds, soft, nontender, no hepatosplenomegaly Skin no rashes, warm and dry Psychiatric A+Ox3, euthymic affect Discharge Data Allergies Allergy/AdvReac Type Severity Reaction Status Date / Time iron Allergy Intermediate PATIENT Verified 05/05/20 12:29 FEELS LIKE DHE IS BURNING/ NAUSEA magnesium carbonate Allergy Intermediate PATIENT Verified 05/05/20 12:29 FEELS LIKE SHE IS BURNING/ WITH NAUSEA Dihydroxyaluminum Allergy Intermediate PATIENT Uncoded 05/05/20 12:29 Aminoacetate FEELS LIKE SHE IS BURNING/ WITH NAUSEA ANTIBIOTICS AdvReac Mild VAGINAL Uncoded 05/05/20 12:29 YEAST INFECTION Consultations 07/17/20 17:30 ED Decision to Admit Stat Hospital Course (1) Symptomatic anemia: Symptomatic anemia: - Patient has ongoing history of anemia (dating back to 03/2020). She had an EDG and colonoscopy in 04/[address] Hansen at which time several polyp were identified, although all were non-bleeding. She had outpatient labs drawn on 07/12/20 which showed a Hgb of 6.7, Iron of 14, and ferritin of 9.1. Reticulocytes were WNL. Chart review indicates that patient was not referred to the ED for blood transfusion in response to Hgb 6.7 from labs drawn on 07/12/20. Patient was sent up for IV iron infusions - she went to the [facility] on 07/17/20 for her first infusion at which time a CBC was drawn. After returning home from her infusion, a staff member of the [facility] called her to go to the [facility] ED for a blood transfusion, as her hemoglobin was 5.9. Hemoglobin increased appropriate from 5.9 to 9.2 after transfusion of 2 units of pRBCs. - Order for a Hemoccult stool was placed during 1 day hospital stay, however patient did not have BM while inpatient - CBC showed MCV of 68, RDW of 54. peripheral smear was ordered, which showed evidence only of iron deficiency anemia (cells microcytic, hypochromic). No evidence of hemolysis. - Suspect patient has production problem rather than a destruction issue. Normal Retic index with concurrent low Hgb on labs from 07/12 suggested inappropriate response (retics should have been elevated). dietary history revealed lack of protein/meat intake. - Labs from 07/12/20 revealed concurrent Vitamin B12 deficiency - Low iron and Vit B12 perhaps suggestive of malabsorption issue. Patient denied history of gastric bypass. Consider celiacs testing - Recommend continuing IV iron infusion series. If hgb/iron deficiency does not improve with such, consider bone marrow biopsy to assess for myelofibrosis/sideroblastic anemia/multiple myeloma. Outpatient items to do: Repeat hemoglobin in 5-7 days. Consider hematology referral. Hypertension: - Continue home meds: HCTZ, Imdur Diabetes mellitus, type 2: - continue home medication regimen History of angina: - EKG shows no signs of acute ischemia. - Stress test planned for 07/2020 - ASA held while inpatient due to concurrent anemia, although given that suspicion of anemia etiology is production issue, unlikley to be at increased risk for GI bleed Anxiety: - Continue home lorazepam & trazodone at night. Total Time Total Time Spent Total Time Spent (In Minutes): see attending attestation Discharge Plan Discharge Items Patient Disposition: Home - Self-Care Reason For Visit: ANEMIA Discharge Diagnosis: Anemia Activity: Resume your previous activity Non-emergency contact: Primary Care Provider Call non-emergency contact if: you have any medication questions Follow-up/Referrals: Ana Maria Davis CRNP [Primary Care Provider] - 07/21/20 9:50 am (APPT WITH DR Candida LOYA) Diet: Carb Consistent or DM2 and Heart Healthy Addtl Attending Provider Instructions: You were directed to go to the [facility] [address] after receiving an IV iron infusion on 07/17/20 because your hemoglobin was very low (6.5). This indicates you were significantly anemic. You were transfused with 2 units of blood and your hemoglobin came up to 9.2 - you felt much better after having the blood transfusion. We are aware your iron and ferritin (a storage form of iron) are low - we want you to continue to complete your IV infusions of iron as previously directed. As for the cause of your continued anemia, you had upper and lower endoscopies (scopes performed by GI doctors) in 04/2020, which identified several polyps but no active sources of bleeding, making an internal loss less likely. We suspect the issue with your anemia is not from a loss of red blood cells, but instead a lack of production of new red blood cells. When discussing your diet, you seemed to be eating less than you used to in the past. You also reported that you are not consuming much meat - which is rich in iron. Although we are supplementing your iron with IV infusions - you should make an effort to consume more protein to maintain your iron stores. We ordered smear of your blood - which allows a pathologist to view t under a microscope - the sample showed evidence of iron deficiency anemia. Blood cells are made in the bone marrow - another possibility is your bone marrow is "worn out," and not producing new blood cells as readily as it used to. We would like you to see hematology as an outpatient to discuss/further explore. A referral was placed for you to see them. Please follow up with your Primary Care Provider, Coleen Davis or Dr. Nicolás Amato at [facility] within 1 week. You will need to have you hemoglobin rechecked at your next visit. Pending Studies at Discharge: No Stand-Alone Forms: My [facility], Smoking Cessation Medications and DC Order Prescriptions: Continued repaglinide 2 mg Tablet 2 mg PO QAM RF: 0 ibuprofen 800 mg Tablet 800 mg PO DAILY PRN (Reason: Pain) RF: 0 fenofibrate micronized 67 mg Capsule 67 mg PO PM RF: 0 simvastatin 40 mg Tablet 40 mg PO PM RF: 0 isosorbide mononitrate 120 mg Tablet Extended Release 24 Hr 120 mg PO QAM RF: 0 pantoprazole 20 mg Tablet,Delayed Release (Dr/Ec) 20 mg PO QPM RF: 0 lorazepam 0.5 mg Tablet 0.5 mg PO TID RF: 0 trazodone 100 mg Tablet 100 mg PO HS RF: 0 metformin 1,000 mg Tablet 1,000 mg PO BID RF: 0 nitroglycerin 0.4 mg Tablet, Sublingual 0.4 mg sublingual UD PRN (Reason: Angina) RF: 0 glipizide 5 mg Tablet 5 mg PO QPM RF: 0 glipizide 5 mg Tablet 10 mg PO QAM RF: 0 Artificial Tears (PF) Dropperette 1 drp OPHTHALMIC (EYE) BID RF: 0 hydrochlorothiazide 12.5 mg Tablet 12.5 mg PO QAM RF: 0 Metamucil 3.4 gram/5.4 gram Powder 2 tbsp PO QAM RF: 0 aspirin 81 mg Tablet,Delayed Release (Dr/Ec) 81 mg PO DAILY RF: 0 Discharge Orders: Discharge Order (Routine); Ordered 07/18/20 Ordered By: Gigi Kat/Other Patient Handouts: Managing Type 2 Diabetes Admission Data Admit Date/Time: 07/17/20 18:22 Attending Provider: Kevin Gaona Admit Provider: Kulwant Jimenez Primary Care Provider: Ana Maria Davis Other Providers: Kulwant Jimenez Other Interventions: Discharge Summary Assessment (RN) Last Done: 07/18/20 15:11 Supervising Physician Co-Signing Physician Notes Patient seen and examined PGY-2 Dr. Velázquez. Agree with history, exam findings, assessment and plan of care as outlined. In brief, Ms. Jerry is a 75 year old female with history of DM, HTN, anxiety and iron deficiency and B12 deficiency anemia admitted with symptomatic anemia. Hemoglobin 5.9 on admission. Transfused with PRBCs. Hemoglobin at discharge 9.2. Reviewed outpatient labs as well. Ferritin and iron very low. B12 borderline low. S/p x1 venofer infusion. Peripheral smear with microcytic, hypochronic RBCs. Will need to repeat hgb in 5-7 days with PCP. Consider heme referral as an outpatient. Unclear etiology of iron deficiency--malabsorption vs dietary vs bone marrow/production issue. I personally spent 35 minutes discharge planning for this patient. Resident Activity Tracking Resident Involvement: Resident Care Provided Care Provided: Adult Hospital Medicine
== END 2020-07-18 16:35 | disposition home or self-care (01) ==
LOC: ED 14:27 → SUATTDRO 18:22 → INTOOBSV 18:22 → 3N 18:22